=== PATIENT | female | born 1985 | race African-American/Black ===

== ENCOUNTER 2021-12-03 17:21 | Emergency (ER) | payer MEDICAID, OTHER ==
[~2021-12-03] VITALS: Ht 170.2 cm; Wt 75.0 kg
[2021-12-03 17:35] VITALS: BP 123/73
== END 2021-12-03 20:15 | disposition left against medical advice (07) ==
LOC: ER 17:21
DX: Z53.21 Procedure and treatment not carried out due to patient leaving prior to being seen by health care provider (principal)

== ENCOUNTER 2022-04-03 10:53 | Emergency (ER) | payer OTHER ==
[~2022-04-03] VITALS: Ht 172.7 cm; Wt 81.0 kg
[2022-04-03 11:00] VITALS: BP 126/81
[2022-04-03] MEDS ORDERED: DEXAMETHASONE 10 MG/ML VIAL IV ONE (12:45)
[2022-04-03] MEDS ORDERED: ACETAMINOPHEN 325MG TABLET PO ONE (12:45)
[2022-04-03] MEDS ORDERED: IBUPROFEN 400MG TABLET PO ONE (14:30)
[2022-04-03] MEDS ORDERED: IBUP-2028 MT (14:34)
[2022-04-03] MEDS ORDERED: TOPUD PO (14:34)
[2022-04-03] MEDS ORDERED: DEXAMETHASONE 10 MG/ML VIAL IV NR (14:45)
[2022-04-03] MEDS ORDERED: ACETAMINOPHEN 325MG TABLET PO NR (14:45)
== END 2022-04-03 12:47 | disposition home or self-care (01) ==
LOC: ER 10:53
DX: B34.9 Viral infection, unspecified (principal); R51.9 Headache, unspecified; Z20.822 Contact with and (suspected) exposure to COVID-19; R63.0 Anorexia; Z68.27 Body mass index [BMI] 27.0-27.9, adult
CPT/HCPCS: 81025; 87426; 87804; 96374; 99283; C9803; J1100

== ENCOUNTER 2023-07-24 22:52 | Emergency (ER) | payer MEDICAID, OTHER ==
[~2023-07-24] VITALS: Ht 165.1 cm; Wt 92.0 kg
[~2023-07-24 22:52] MED LIST: AMOX1TAB16 PO; IBUP-2028 MT; TOPUD PO
[2023-07-24 23:00] VITALS: BP 109/76; PULSE 77; RESP 14; TEMP 98.1; O2SAT 100
== END 2023-07-25 03:41 | disposition left against medical advice (07) ==
LOC: ER 22:52
DX: R51.9 Headache, unspecified (principal); Z53.21 Procedure and treatment not carried out due to patient leaving prior to being seen by health care provider
CPT/HCPCS: 99281

== ENCOUNTER 2024-06-10 11:21 | Emergency (ER) | payer MEDICAID, OTHER ==
[~2024-06-10] VITALS: Ht 165.1 cm; Wt 64.0 kg
[2024-06-10 11:22] VITALS: O2SAT 99
[2024-06-10 11:23] VITALS: BP 128/67; PULSE 99; RESP 18; TEMP 97.7; O2SAT 98
[2024-06-10 15:13] LABS: BASOPHILS % 1.1 % (0.0-2.0); EOSINOPHILS % 1.1 % (0.0-5.0); HEMATOCRIT. 40.6 % (36.0-48.0); HEMOGLOBIN. 13.5 g/dL (12.0-16.0); LYMPHOCYTES % 33.7 % (20.0-50.0); MEAN CORPUSCULAR HEMOGLOBIN 30.5 pg (28.0-32.0); MEAN CORPUSCULAR HGB CONC 33.1 g/dL (31.0-37.0); MEAN CORPUSCULAR VOLUME 92.1 fL (81.0-99.0); MEAN PLATELET VOLUME 9.9 fl (7.4-10.4); MONOCYTES % 7.5 % (2.0-8.0); NEUTROPHILS % 56.6 % (40.0-76.0); PLATELET 272 x1000/uL (130-400); RED BLOOD CELL COUNT 4.41 mill/uL (4.2-5.4); RED CELL DISTRIBUTION WIDTH 14.2 % (11.6-14.6); WHITE BLOOD COUNT 6.1 x1000/uL (4.5-11.0)
[2024-06-10 15:21] LABS: CHLORIDE 107 mEq/L (98-107); SODIUM 139 mEq/L (136-145)
[2024-06-10 15:22] LABS: CALCIUM 9.4 mg/dL (8.7-10.4); CARBON DIOXIDE 27 mEq/L (21-32)
[2024-06-10 15:27] LABS: CREATININE 0.7 mg/dL (0.6-1.0); GLUCOSE 84 mg/dL (70-105); UREA NITROGEN BLOOD 9 mg/dL (9-23)
[2024-06-10 15:28] LABS: B-HCG QUANTITATIVE < 1 mIU/mL (<3)
[2024-06-10 15:37] LABS: CLARITY URINE CLEAR (CLEAR); COLOR URINE YELLOW (YELLOW); GLUCOSE URINE NEGATIVE (NEGATIVE); KETONES URINE NEGATIVE (NEGATIVE); LEUKOCYTE ESTERASE URINE NEGATIVE (NEGATIVE); NITRITE URINE NEGATIVE (NEGATIVE); OCCULT BLOOD URINE NEGATIVE (NEGATIVE); PROTEIN URINE NEGATIVE (NEGATIVE); SPECIFIC GRAVITY URINE 1.023 (1.005-1.030); UROBILINOGEN URINE 0.2 E.U./dL (0.2-1.0)
== END 2024-06-10 15:46 | disposition home or self-care (01) ==
LOC: ER 11:59
DX: R10.31 Right lower quadrant pain (principal); J45.909 Unspecified asthma, uncomplicated; Z88.5 Allergy status to narcotic agent; Z98.890 Other specified postprocedural states
CPT/HCPCS: 36415; 76830; 76856; 80048; 81003; 81025; 84702; 85025; 86850; 86900; 99284

== ENCOUNTER 2025-01-15 03:21 | Emergency (ER) | payer MEDICAID ==
[~2025-01-15] VITALS: Ht 165.1 cm; Wt 95.0 kg
[2025-01-15 03:32] VITALS: O2SAT 98
[2025-01-15 04:04] LABS: HEMATOCRIT. 42.2 % (36.0-48.0); HEMOGLOBIN. 13.6 g/dL (12.0-16.0); MEAN CORPUSCULAR HGB CONC 32.2 g/dL (31.0-37.0); MEAN CORPUSCULAR VOLUME 90.3 fL (81.0-99.0); MEAN PLATELET VOLUME 9.4 fl (7.4-10.4); PLATELET 238 x1000/uL (130-400); RED BLOOD CELL COUNT 4.67 mill/uL (4.2-5.4); RED CELL DISTRIBUTION WIDTH 13.7 % (11.6-14.6); WHITE BLOOD COUNT 4.7 x1000/uL (4.5-11.0)
[2025-01-15 04:12] LABS: CHLORIDE 104 mEq/L (98-107); POTASSIUM 3.6 mEq/L (3.5-5.1); SODIUM 139 mEq/L (136-145)
[2025-01-15 04:13] LABS: CARBON DIOXIDE 26 mEq/L (21-32); DIFFERENTIAL COMMENT 1
[2025-01-15 04:18] LABS: GLUCOSE 96 mg/dL (70-105); UREA NITROGEN BLOOD 8 mg/dL (9-23)
[2025-01-15 05:07] LABS: TROPONIN I HIGH SENSITIVITY < 4 ng/L (3.0-34)
[2025-01-15] MEDS: ONDANSETRON 4MG ODT PO STA (05:57)
[2025-01-15] MEDS: KETOROLAC 30MG/ML VIAL IM ONE (05:57)
[2025-01-15 06:01] LABS: PLATELET ESTIMATE NORMAL
[2025-01-15 06:39] LABS: CLARITY URINE CLEAR (CLEAR); COLOR URINE DARK YELLOW (YELLOW); GLUCOSE URINE NEGATIVE (NEGATIVE); KETONES URINE 2+ (NEGATIVE); LEUKOCYTE ESTERASE URINE NEGATIVE (NEGATIVE); NITRITE URINE NEGATIVE (NEGATIVE); OCCULT BLOOD URINE 3+ (NEGATIVE); PH URINE 5.5 (4.5-8.0); PROTEIN URINE 1+ (NEGATIVE); SPECIFIC GRAVITY URINE 1.036 (1.005-1.030)
[2025-01-15 07:02] LABS: SQUAMOUS EPITHELIAL CELL URINE 1+ /lpf (RARE/1+)
[2025-01-15 07:06] LABS: WBC URINE 0-2 /hpf (0-2)
[2025-01-15 07:10] LABS: BACTERIA URINE NONE SEEN
[2025-01-15] MEDS ORDERED: ONDA-239 PO (07:25)
[2025-01-15] MEDS ORDERED: [UNRECOGNIZED DRUG - CODE] MT (07:25)
[2025-01-15 07:36] VITALS: BP 119/70; PULSE 89; RESP 18; TEMP 37.7; O2SAT 98
== END 2025-01-15 07:37 | disposition home or self-care (01) ==
LOC: ER 03:21
DX: R05.9 Cough, unspecified (principal); R11.2 Nausea with vomiting, unspecified; F10.90 Alcohol use, unspecified, uncomplicated; J45.909 Unspecified asthma, uncomplicated; Y90.9 Presence of alcohol in blood, level not specified
CPT/HCPCS: 99285; 76705; 71045; 80048; 81003; 81025; 85025; 84484; 36415; 93005; 96372; J1885; Q0162